=== PATIENT | female | born 1965 | race Caucasian/White ===

== ENCOUNTER 2020-02-09 21:27 | Inpatient (IN) ==
[2020-02-09] MEDS ORDERED: PIPERACILLIN/TAZOBACTAM 3,375 MG in SODIUM CHLORIDE 0.9% 100 ML IV STA (22:04)
[2020-02-09] MEDS ORDERED: methylPREDNISolone SOD SUC 125 MG/2 ML VIAL IV STA (22:04)
[2020-02-09] MEDS ORDERED: AZITHROMYCIN INJ 500 MG in SODIUM CHLORIDE 0.9% 250 ML IV STA (22:04)
[2020-02-09 22:22] LABS: Basophils % 0.2 % (0.0-0.8); Eosinophils # 0.1 10*3/uL (0.0-0.87); Eosinophils % 1.3 % (0.00-10.9); Hematocrit 39.6 VOL% (35.7-47.0); Hemoglobin 13.9 GM/DL (12.0-16.0); Immature Granulocytes % 0.5 %; Immature Granulocytes Absolute 0.03 #; Lymphocytes # 1.3 10*3/uL (1.4-4.0); Lymphocytes % 23.9 % (21.3-54.2); Mean Corpuscular HGB Conc 35.1 GM/DL (32-36); Mean Corpuscular Volume 81.3 FL (87-102); Mean Platelet Volume 9.8 FL (9.6-12.0); Monocytes % 5.6 % (1.7-12.7); Neutrophils % 68.5 % (38.7-73.9); Platelet Count 185 T/CUMM (130-400); Red Blood Count 4.87 MC/CUMM (3.8-5.5); White Blood Count 5.5 T/CUMM (4-12)
[2020-02-09 22:31] LABS: ABG HCO3 27.9 MMOL/L (20-26); ABG PCO2 36.8 MM HG (35-48); ABG TCO2 23.4 MMOL/L (23-27); Allen Test Positive
[2020-02-09 22:32] LABS: Alanine Aminotransferase 44 U/L (13-56); Alkaline Phosphatase 79 U/L (45-117); Aspartate Amino Transferase 45 U/L (0-37); Blood Urea Nitrogen 10 MG/DL (7-18); Calcium 8.3 MG/DL (8.5-10.1); Estimated Glom Filtration Rate 124 ML/MIN; Ferritin 373.2 ng/ml (8-252); Glucose 135 MG/DL (74-106); Osmolality,Calculated 277.5 MOS/KG (273-304); Total Protein 7.3 G/DL (6.4-8.3); Troponin I < 0.015 NG/ML (0.00-0.045)
[2020-02-09 22:33] LABS: PT Patient Result 10.4 SECS (9.8-11.9)
[2020-02-09] MEDS ORDERED: SODIUM CHLORIDE 0.9% 100 ML IV ONE (22:52)
[2020-02-09] MEDS ORDERED: POTASSIUM CHLORIDE 20 MEQ TABLET PO STA (22:54)
[2020-02-09] MEDS ORDERED: guaiFENesin/DM ER 600-30 MG TABLET PO PRN (23:33)
[2020-02-09] MEDS ORDERED: ONDANSETRON 4 MG/2 ML VIAL IV PRN (23:33)
[2020-02-09] MEDS ORDERED: PROMETHAZINE 25 MG/1 ML VIAL IM PRN (23:33)
[2020-02-09] MEDS ORDERED: hydrALAZINE 20 MG/1 ML VIAL IV PRN (23:33)
[2020-02-09] MEDS ORDERED: GLUCAGON 1 MG VIAL IM PRN (23:33)
[2020-02-09] MEDS ORDERED: NICOTINE 21 MG/24 HR PATCH TRANSDERM PRN (23:33)
[2020-02-09] MEDS ORDERED: diphenhydrAMINE CAP 25 MG CAPSULE PO PRN (23:33)
[2020-02-09] MEDS ORDERED: MORPHINE 4 MG/1 ML VIAL IV PRN (23:33)
[2020-02-09] MEDS ORDERED: ZALEPLON 5 MG CAPSULE PO PRN (23:33)
[2020-02-09] MEDS ORDERED: DEXTROSE 10% 250 ML BAG IV PRN (23:44)
[2020-02-09] MEDS ORDERED: SODIUM CHLORIDE 0.9% 1,000 ML IV SCH (23:45)
[2020-02-09 23:55] LABS: Apearance,Urine CLEAR (Clear); Bacteria,Urine Occasional /HPF (Few); Bilirubin,Urine Negative (Negative); Blood, Urine Negative (Negative); Glucose,Urine (UA) Negative (Negative); Ketones,Urine Negative (Negative); Mucus,Urine Many /LPF (Occasional); Nitrite,Urine Negative (Negative); Protein,Urine 30 MG/DL; RBC,Urine 2 /HPF (0-4); Squamous Epithelial Cell,Urine Occasional /HPF (0-10); Urine Color Amber (Yellow); Urine Specific Gravity 1.023 (1.001-1.035); WBC,Urine 4 /HPF (0-6)
[2020-02-10] MEDS: ALBUTEROL INHALER 18 GM INH SCH ×6 (04:26→23:40)
[2020-02-10] MEDS ORDERED: AZITHROMYCIN INJ 500 MG in SODIUM CHLORIDE 0.9% 250 ML IV SCH (09:00)
[2020-02-10] MEDS ORDERED: cefTRIAXone 1,000 MG in SYRINGE 1 EACH IV SCH (09:00)
[2020-02-10] MEDS ORDERED: AZITHROMYCIN 250 MG TABLET PO SCH ×2 (09:00→11:00)
[2020-02-10 09:01] LABS: Basophils % 0.2 % (0.0-0.8); Hemoglobin 13.7 GM/DL (12.0-16.0); Immature Granulocytes % 0.7 %; Immature Granulocytes Absolute 0.03 #; Lymphocytes # 0.8 10*3/uL (1.4-4.0); Lymphocytes % 20.2 % (21.3-54.2); Mean Corpuscular HGB Conc 34.3 GM/DL (32-36); Mean Corpuscular Volume 82.3 FL (87-102); Mean Platelet Volume 9.9 FL (9.6-12.0); Monocytes % 2.2 % (1.7-12.7); Neutrophils % 76.7 % (38.7-73.9); Platelet Count 196 T/CUMM (130-400); Red Blood Count 4.86 MC/CUMM (3.8-5.5); Red Cell Distribution Width 12.8 % (9.3-17.3); White Blood Count 4.1 T/CUMM (4-12)
[2020-02-10 09:28] LABS: Calcium 8.7 MG/DL (8.5-10.1); Osmolality,Calculated 283.4 MOS/KG (273-304)
[2020-02-10] MEDS: DOCUSATE SODIUM 100 MG CAPSULE PO SCH ×2 (10:45→20:30)
[2020-02-10] MEDS: PANTOPRAZOLE 40 MG TABLET PO SCH (10:46)
[2020-02-10] MEDS: IPRATROPIUM 0.06% NASAL SPRAY 15 ML BOTTLE BOTH NARES SCH ×3 (10:46→20:30)
[2020-02-10] MEDS: ENOXAPARIN 40 MG/0.4 ML SYRINGE SUBCUT SCH (10:46)
[2020-02-10] MEDS: METOPROLOL SUCCINATE XL 50 MG TABLET PO SCH (10:46)
[2020-02-10] MEDS: HYDROXYCHLOROQUINE 200 MG TABLET PO SCH ×2 (10:46→20:30)
[2020-02-10] MEDS: ZINC SULFATE 220 MG CAPSULE PO SCH (10:46)
[2020-02-11] MEDS: ACETAMINOPHEN 325 MG TABLET PO PRN ×4 (03:15→18:37)
[2020-02-11] MEDS: IPRATROPIUM 0.06% NASAL SPRAY 15 ML BOTTLE BOTH NARES SCH ×4 (04:50→20:15)
[2020-02-11] MEDS: ALBUTEROL INHALER 18 GM INH SCH ×6 (04:50→23:00)
[2020-02-11 06:45] LABS: Basophils % 0.1 % (0.0-0.8); Hemoglobin 12.4 GM/DL (12.0-16.0); Immature Granulocytes % 1.5 %; Immature Granulocytes Absolute 0.15 #; Lymphocytes # 1.8 10*3/uL (1.4-4.0); Lymphocytes % 17.4 % (21.3-54.2); Mean Corpuscular HGB Conc 33.5 GM/DL (32-36); Mean Corpuscular Volume 83.9 FL (87-102); Mean Platelet Volume 9.5 FL (9.6-12.0); Monocytes % 4.9 % (1.7-12.7); Neutrophils % 76.1 % (38.7-73.9); Platelet Count 230 T/CUMM (130-400); Red Blood Count 4.41 MC/CUMM (3.8-5.5); Red Cell Distribution Width 12.9 % (9.3-17.3)
[2020-02-11 07:08] LABS: Calcium 8.1 MG/DL (8.5-10.1)
[2020-02-11] MEDS ORDERED: POTASSIUM CHLORIDE RIDER 10 MEQ in PREMIX 1 EACH IV PRN (07:51)
[2020-02-11] MEDS: POTASSIUM CHLORIDE 20 MEQ TABLET PO PRN ×3 (09:45→17:15)
[2020-02-11] MEDS: ENOXAPARIN 40 MG/0.4 ML SYRINGE SUBCUT SCH (09:50)
[2020-02-11] MEDS: PANTOPRAZOLE 40 MG TABLET PO SCH (09:50)
[2020-02-11] MEDS: DOCUSATE SODIUM 100 MG CAPSULE PO SCH ×2 (09:50→20:15)
[2020-02-11] MEDS: HYDROXYCHLOROQUINE 200 MG TABLET PO SCH ×2 (09:50→20:15)
[2020-02-11] MEDS: METOPROLOL SUCCINATE XL 50 MG TABLET PO SCH (09:50)
[2020-02-12] MEDS: ALBUTEROL INHALER 18 GM INH SCH ×3 (00:30→10:15)
[2020-02-12] MEDS: ACETAMINOPHEN 325 MG TABLET PO PRN (01:00)
[2020-02-12] MEDS: IPRATROPIUM 0.06% NASAL SPRAY 15 ML BOTTLE BOTH NARES SCH ×2 (03:00→09:48)
[2020-02-12 06:58] LABS: Basophils % 0.4 % (0.0-0.8); Eosinophils # 0.1 10*3/uL (0.0-0.87); Eosinophils % 0.8 % (0.00-10.9); Hematocrit 40.3 VOL% (35.7-47.0); Hemoglobin 13.5 GM/DL (12.0-16.0); Immature Granulocytes % 4.2 %; Immature Granulocytes Absolute 0.33 #; Lymphocytes # 2.1 10*3/uL (1.4-4.0); Mean Corpuscular HGB Conc 33.5 GM/DL (32-36); Mean Corpuscular Volume 83.8 FL (87-102); Mean Platelet Volume 9.1 FL (9.6-12.0); Monocytes % 7.2 % (1.7-12.7); Neutrophils % 60.4 % (38.7-73.9); Platelet Count 264 T/CUMM (130-400); Red Blood Count 4.81 MC/CUMM (3.8-5.5); White Blood Count 7.9 T/CUMM (4-12)
[2020-02-12 07:33] LABS: Calcium 8.8 MG/DL (8.5-10.1); Osmolality,Calculated 278.3 MOS/KG (273-304)
[2020-02-12 07:41] LABS: Hypochromasia 1+; Lymphocytes 28 % (20-55); Microcytosis Slight; Segmented Neutrophils 62 % (50-85); Total Cells Counted 100
[2020-02-12 07:42] LABS: Platelet Estimate Normal
[2020-02-12 08:57] VITALS: BP 141/95
[2020-02-12] MEDS: METOPROLOL SUCCINATE XL 50 MG TABLET PO SCH (09:48)
[2020-02-12] MEDS: PANTOPRAZOLE 40 MG TABLET PO SCH (09:48)
[2020-02-12] MEDS: DOCUSATE SODIUM 100 MG CAPSULE PO SCH (09:48)
[2020-02-12] MEDS: ZINC SULFATE 220 MG CAPSULE PO SCH (09:48)
[2020-02-12] MEDS: ENOXAPARIN 40 MG/0.4 ML SYRINGE SUBCUT SCH (09:48)
[2020-02-12] MEDS: HYDROXYCHLOROQUINE 200 MG TABLET PO SCH (09:48)
== END 2020-02-12 13:10 | disposition home or self-care (01) | DRG 177 ==
LOC: N.ED 21:27 → N.EDINP 23:33 → SUATTDRO 23:33 → N.2W 02-10 00:38
PROVIDERS: ADMIT Internal Medicine; ATTEND Internal Medicine